=== PATIENT | female | born 1985 | race Caucasian/White ===

== ENCOUNTER 2018-04-23 11:28 | Day surgery (SDC) | payer OTHER ==
[2018-04-23] MEDS ORDERED: LIDOCAINE 1% 2 ML INJ ID PRN (12:18)
[2018-04-23] MEDS ORDERED: LR 1,000 ML IV ONE (12:18)
[2018-04-23] MEDS ORDERED: INDOMETHACIN 50 MG SUPP PR PRN (13:20)
--- NOTE | 2018-04-23 13:20 | PDGENHP ---
History & Physical Chief Complaint: ruq abdominal pain History of Present Illness: 32 year old female presents for evaluatin of RUQ abdominal pain Pertinent Past, Social, Family History: PMHx: hypothyroid. SurgHx: C-sxn. FaMHx: lung ca Relevant Physical Exam: HEENT: anicteric. Cv: RRR +s1s2. lungs: CTAB. Abd: soft, nt, + bs Cardiorespiratory Assessment: ASA 2
[2018-04-23] MEDS ORDERED: fentaNYL 100 MCG/2 ML INJ ONE (13:22)
[2018-04-23] MEDS ORDERED: PROPOFOL/EMULSION 500 MG/50 ML BOTTLE IV ONE (13:22)
[2018-04-23] MEDS ORDERED: NS 500 ML IV SCH (13:30)
[2018-04-23] MEDS ORDERED: ONDANSETRON 4 MG/2 ML VIAL IVP PRN (14:10)
[2018-04-23] MEDS ORDERED: NALOXONE HCL 0.4 MG/ML INJ IVP PRN (14:10)
[2018-04-23] MEDS ORDERED: ALBUTEROL 3 ML DEYVIAL IH PRN (14:10)
--- NOTE | 2018-04-23 14:11 | POSTANESTH ---
Post Anesthetic Evaluation Cardiovascular Status: Similar to Pre-Op Cond Respiratory Status: Similar to Pre-op Cond. Level of Consciousness/Mental Status: Mildly Sleepy, Arousable Pain Control: Adequate, Prn Tx Ordered Nausea/Vomiting Control: Adequate, Prn Tx Ordered Complications Possibly Related to Anesthesia: None Noted
--- NOTE | 2018-04-23 14:11 | PDANEPAE ---
ANE Past Medical History - Cardiovascular History Hx Hypertension: No Hx Arrhythmias: No Hx Chest Pain: No Hx Coronary Artery / Peripheral Vascular Disease: No Hx CHF / Valvular Disease: No Hx Palpitations: No - Pulmonary History Hx COPD: No Hx Asthma/Reactive Airway Disease: No Hx Recent Upper Respiratory Infection: No Hx Oxygen in Use at Home: No Hx Sleep Apnea: No Sleep Apnea Screening Result - Last Documented: Negative Pulmonary History Comment: 2 YR HX OF WHEEZING WHEN EXHALES - Neurologic History Hx Cerebrovascular Accident: No Hx Seizures: No Hx Dementia: No - Endocrine History Hx Diabetes: No Endocrine History Comment: HYPOTHYROID - Renal History Hx Renal Disorders: No - Liver History Hx Hepatic Disorders: No - Neurological & Psychiatric Hx Hx Neurological and Psychiatric Disorders: No - Cancer History Hx Cancer: No - Congenital Disorder History Hx Congenital Disorders: No - GI History Hx Gastrointestinal Disorders: Yes Gastrointestinal History Comment: HX OF GALLSTONES. INTERMITTENT RUQ PAIN. BLOATING - Other Health History Other Health History: BREAST FEEDING - Chronic Pain History Chronic Pain: Yes (RUQ) - Surgical History Prior Surgeries: X2. EGD 2011. WISDOM TEETH ANE Review of Systems Review of Systems: - Exercise capacity METS (RN): 6 METS ANE Patient History - Allergies Allergies/Adverse Reactions: No Known Allergies Allergy (Unverified 04/19/18 16:02) - Home Medications Home Medications: Levothyroxine DAILY 04/19/18 [Last Taken 1 Day Ago ~04/22/18] - NPO status NPO Since - Liquids (Date): 04/23/18 NPO Since - Liquids (Time): 10:00 NPO Since - Solids (Date): 04/22/18 NPO Since - Solids (Time): 22:00 - Smoking Hx Smoking Status: Former smoker - Family Anes Hx Family Hx Anesthesia Complications: NEG ANE Labs/Vital Signs - Vital Signs Blood Pressure: 111/80 Heart Rate: 79 Respiratory Rate: 18 O2 Sat (%): 96 Height: 170.18 cm Weight: 72.575 kg ANE Physical Exam - Airway Neck exam: FROM Mallampati Score: Class 2 - Pulmonary Pulmonary: no respiratory distress - Cardiovascular Cardiovascular: regular rate and rhythym - ASA Status ASA Status: II ANE Anesthesia Plan Total IV Anesthesia: Yes
--- NOTE | 2018-04-23 14:21 | GIREPORT ---
[facility] Surgical Services - Endoscopy Department Patient Name: Ambar Galindo Procedure Date: 04/23/2018 1:07 PM Patient Type: Outpatient Attending MD/ ER Physician: Kev Hernandez MD Procedure: Upper EUS Indications: Abdominal pain in the right upper quadrant Patient Profile: 32 year old female presents for evaluation of RUQ abdominal pain. Providers: Kev Hernandez MD Medicines: Monitored Anesthesia Care Complications: No immediate complications. Estimated blood loss: Minimal. Description of Procedure: After obtaining informed consent, the endoscope was passed under direct vision. Throughout the procedure, the patient's blood pressure, pulse, and oxygen saturations were monitored continuously. The Endosonoscope was introduced through the mouth, and advanced to the second part of duoden um. The Endoscope was introduced through the mouth, and advanced to the sec ond part of duodenum. The upper EUS was accomplished without difficulty. Th e esophagus, stomach, and duodenum were visualized endosonographically. T he patient tolerated the procedure well. Findings: Endoscopic Finding : Mucosal changes including ringed esophagus and longitudinal furrows wer e found in the entire esophagus. Biopsies were taken with a cold forceps for histology. Patchy mildly erythematous mucosa was found in the gastric body and in the gastric antrum. Biopsies were taken with a cold forceps for histology. The examined duodenum was normal. Biopsies for histology were taken wit h a cold forceps for evaluation of celiac disease. Endosonographic Finding : Two stones were visualized endosonographically in the gallbladder. The stones were round. They were hyperechoic and characterized by shadowing . The CBD was not dilated and measured about 4mm. No stone or sludge was seen in the CBD Pancreatic parenchymal abnormalities were noted in the entire pancreas. These consisted of hyperechoic foci. There was no sign of significant endosonographic abnormality in the visualized portion of the liver. No masses were identified. No lymphadenopathy seen. Estimated Blood Loss: Estimated blood loss was minimal. Post Op Diagnosis: - Esophageal mucosal changes suspicious for eosinophilic esophagitis. Biopsied. - Erythematous mucosa in the gastric body and antrum. Biopsied. - Normal examined duodenum. Biopsied. - Two stones were visualized endosonographically in the gallbladder. - CBD was normal. - Pancreatic parenchymal abnormalities consisting of hyperechoic foci w ere noted in the entire pancreas. - There was no evidence of significant pathology in the visualized port ion of the liver. - Etiology? No obvious cause of pain seen. + gallstones in GB. Await bi opsy results. Suspect has eosinophilic esophagitis? Recommendation: - Discharge patient to home (with escort). - Await path results. - Return to GI clinic in 6 weeks. - Consider trial of antispasmodic vs surgical referral vs other? - Thank you for allowing me to participate in the care of your patient. Attending Participation: I personally performed the entire procedure. Kev Hernandez MD Kev Hernandez MD 04/23/2018 2:21:01 PM This report has been signed electronicallyKev Hernandez MD Number of Addenda: 0 Note Initiated On: 04/23/2018 1:07 PM [email or web address]
[2018-04-23 15:51] VITALS: BP 101/73
== END 2018-04-23 15:20 | disposition home or self-care (01) ==
LOC: FSGY 11:28
PROVIDERS: ATTEND Internal Medicine Gastroenterology
PROC: 0DB68ZX Excision of Stomach, Via Natural or Artificial Opening Endoscopic, Diagnostic (ICD-10-PCS; principal; 2018-04-23 13:15)
PROC: 0DB28ZX Excision of Middle Esophagus, Via Natural or Artificial Opening Endoscopic, Diagnostic (ICD-10-PCS; principal; 2018-04-23 13:15)
PROC: 0DB98ZX Excision of Duodenum, Via Natural or Artificial Opening Endoscopic, Diagnostic (ICD-10-PCS; principal; 2018-04-23 13:15)
DX: R10.11 Right upper quadrant pain (principal); R14.0 Abdominal distension (gaseous); E03.9 Hypothyroidism, unspecified; Z87.891 Personal history of nicotine dependence
CPT/HCPCS: J2704; J3010